=== PATIENT | female | born 1940 ===

== ENCOUNTER 2019-01-18 11:00 | Inpatient (IN) | payer OTHER ==
[~2019-01-18] VITALS: Ht 152.4 cm; Wt 83.0 kg
[~2019-01-18 11:00] MED LIST: AMLODIPINE BESYL5 MG PO; ATORVASTATIN CA10 MG PO; GABAPENTIN600 MG PO; LOSARTAN-HCTZ1 EAC2 PO; METFORMIN HCL1000 MG PO; SYNTHROID112 MCG PO
[2019-01-18] MEDS ORDERED: NORVASC5 MG PO (13:28)
[2019-01-24] MEDS ORDERED: CLONAZEPAM0.5 MG PO (11:47)
[2019-01-24] MEDS ORDERED: PERCOCET 5-3251 EACH PO (11:47)
[2019-01-24] MEDS ORDERED: DOCUSATE SODIU100 MG PO (11:47)
[2019-01-24] MEDS ORDERED: GABAPENTIN800 MG PO (11:47)
[2019-01-24] MEDS ORDERED: AMOX-CLAV 875-1 EACH PO (11:47)
== END 2019-01-25 13:18 | disposition home or self-care (01) | DRG 517 ==
LOC: O/R 01-24 05:00 → SURH 01-24 05:00 → O/R 01-24 09:45 → SURH 01-24 12:36
PROVIDERS: ADMIT Orthopaedic Surgery Orthopaedic Surgery of the Spine
PROC: 01NB0ZZ Release Lumbar Nerve, Open Approach (ICD-10-PCS; principal; 2019-01-24 09:45)
DX: M43.16 Spondylolisthesis, lumbar region (principal); M48.061 Spinal stenosis, lumbar region without neurogenic claudication; M54.16 Radiculopathy, lumbar region; E11.9 Type 2 diabetes mellitus without complications; I10 Essential (primary) hypertension; E03.8 Other specified hypothyroidism; Z98.1 Arthrodesis status